=== PATIENT | female | born 1940 | race Caucasian/White ===

== ENCOUNTER 2018-01-16 11:07 | Outpatient (CLI) | payer OTHER ==
[2018-01-16 11:33] LABS: BILIRUBIN,URINE NEGATIVE (NEGATIVE); GLUCOSE, URINE (UA) NEGATIVE (NEGATIVE); KETONES,URINE (UA) NEGATIVE (NEGATIVE); LEUKOCYTE ESTERASE, URINE NEGATIVE (NEGATIVE); NITRITE,URINE NEGATIVE (NEGATIVE); OCCULT BLOOD,URINE MODERATE (NEGATIVE); PROTEIN,URINE NEGATIVE (NEGATIVE); UROBILINOGEN,URINE 0.2 (NORMAL) E.U./dL (NORMAL)
[2018-01-16 11:35] LABS: CLARITY,URINE CLEAR (CLEAR)
[2018-01-16 11:42] LABS: CREATININE 0.9 mg/dL (0.4-1.0)
== END 2018-01-16 11:08 | disposition home or self-care (01) ==
LOC: LAB 11:07
PROVIDERS: ATTEND Physician Assistant
DX: R30.0 Dysuria (principal); R31.0 Gross hematuria; R31.29 Other microscopic hematuria
CPT/HCPCS: 36415; 81003; 82565

== ENCOUNTER 2019-04-24 10:55 | Emergency (ER) | payer MEDICARE, OTHER ==
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
[2019-04-24 12:17] VITALS: BP 156/78
== END 2019-04-24 12:27 | disposition home or self-care (01) ==
LOC: EDUNIT# → ED 10:55
DX: R55 Syncope and collapse (principal); I10 Essential (primary) hypertension
CPT/HCPCS: 93005; 99283

== ENCOUNTER 2020-12-15 06:54 | Outpatient (CLI) | payer MEDICARE ==
--- NOTE | 2020-12-15 17:30 | Ultrasound Report ---
PROCEDURE: Abdomen Complete INDICATIONS: HYPERBILIRUBINEMIA TECHNIQUE: Real-time scanning was performed of the abdominal and retroperitoneal organs, with image documentatio n. COMPARISON: None. FINDINGS: Liver: Liver is slightly increased in echogenicity and no focal liver masses seen.. Gallbladder: Normal appearance of the gallbladder. Biliary ducts: Intrahepatic bile ducts are non-dilated. Extrahepatic bile duct caliber measures 6.8 mm. Normal is 6-7 mm or less in diameter, or 10 mm or less post-cholecystectomy. Pancreas: Visualized portions of the pancreas are sonographically normal. Spleen: Spleen is normal in size and homogeneous in echotexture. Kidneys: Kidneys are normal in size and echotexture. Right kidney measures 9.3 cm long; left kidney measures 10.1 cm long. No hydronephrosis or nephrolithiasis. No solid masses. Left renal cortical cyst involving the midpole measuring 10 mm. Aorta: Visualized aorta is normal in caliber at less than 3 cm. Vascular calcifications indicating atherosclerosis. Iliacs: Proximal common iliac arteries are normal in caliber at less than 2.5 cm. IVC: Intrahepatic inferior vena cava is patent. Miscellaneous: No free abdominal fluid. IMPRESSION: Slight increase in hepatic echogenicity which statistically likely represents mild hepatic steatosis. Correlate clinically. 1 cm left renal cortical cyst. Calcification throughout the aorta. Reviewed by: MEGAN Olson on 12/15/2020 5:29 PM PST Approved by: Chica King MD on 12/15/2020 5:29 PM PST Station ID: [id number]
== END 2020-12-15 06:55 | disposition home or self-care (01) ==
LOC: DI 06:54
PROVIDERS: ATTEND Family Medicine
DX: R93.2 Abnormal findings on diagnostic imaging of liver and biliary tract (principal); N28.1 Cyst of kidney, acquired; I70.0 Atherosclerosis of aorta; E87.6 Hypokalemia; E83.52 Hypercalcemia; I10 Essential (primary) hypertension; F03.90 Unspecified dementia, unspecified severity, without behavioral disturbance, psychotic disturbance, mood disturbance, and anxiety
CPT/HCPCS: 36415; 80053; 80061; 82306; 83721; 83970; 84443; 85025

== ENCOUNTER 2020-12-15 08:24 | Outpatient (CLI) | payer MEDICARE ==
[2020-12-15 08:50] LABS: BASOPHILS % (AUTO) 0.3 %; EOSINOPHILS # (AUTO) 0.1 10^3/uL (0.0-0.7); EOSINOPHILS % (AUTO) 1.5 %; HCT - HEMATOCRIT 41.7 % (37.0-47.0); HGB - HEMOGLOBIN 13.6 g/dL (12.0-16.0); LYMPHOCYTES # (AUTO) 1.5 10^3/uL (1.5-3.5); LYMPHOCYTES % (AUTO) 25.8 %; MEAN CORPUSCULAR HEMOGLOBIN 29.5 pg (27.0-31.0); MEAN CORPUSCULAR HGB CONC 32.6 g/dL (32.0-36.0); MEAN CORPUSCULAR VOLUME 90.5 fL (81.0-99.0); MONOCYTES # (AUTO) 0.5 10^3/uL (0.0-1.0); NEUTROPHILS # (AUTO) 3.8 10^3/uL (1.5-6.6); NEUTROPHILS % (AUTO) 64.2 %; PLT - PLATELET COUNT 285 10^3/uL (130-450); RED BLOOD COUNT 4.61 10^6/uL (4.20-5.40); RED CELL DISTRIBUTION WIDTH 13.1 % (12.0-15.0); WHITE BLOOD COUNT 5.9 x10^3/uL (4.8-10.8)
[2020-12-15 09:14] LABS: ALBUMIN 4.3 g/dL (3.2-5.5); ALBUMIN/GLOBULIN RATIO 1.4 (1.0-2.2); ALKALINE PHOSPHATASE 62 IU/L (42-121); ALT ALANINE AMINOTRANSFERASE 13 IU/L (10-60); AST ASPARTATE AMINOTRANSFERASE 19 IU/L (10-42); BILIRUBIN,TOTAL 1.4 mg/dL (0.2-1.0); BUN - BLOOD UREA NITROGEN 21 mg/dL (6-20); CALCIUM 10.3 mg/dL (8.5-10.3); CARBON DIOXIDE - CO2 26 mmol/L (21-32); CHLORIDE 100 mmol/L (101-111); CHOL/HDL RATIO 3.7 (<4.4); CHOLESTEROL 151 mg/dL; CREATININE 0.9 mg/dL (0.4-1.0); GFR - MDRD 61 (>89); GLUCOSE 119 mg/dL (70-100); HDL CHOLESTEROL 41 mg/dL; LDL CHOLESTEROL,CALCULATED 86 mg/dL; LDL/HDL RATIO 2.1 (<4.4); SODIUM 139 mmol/L (135-145); TOTAL PROTEIN 7.4 g/dL (6.7-8.2); TRIGLYCERIDES 119 mg/dL; VLDL CHOLESTEROL 24 mg/dL
[2020-12-15 09:24] LABS: THYROID STIMULATING HORMONE 3.59 uIU/mL (0.34-5.60)
== END 2020-12-15 08:25 | disposition home or self-care (01) ==
LOC: LAB 08:24
PROVIDERS: ATTEND Family Medicine
DX: E87.6 Hypokalemia (principal); E83.52 Hypercalcemia; I10 Essential (primary) hypertension; F03.90 Unspecified dementia, unspecified severity, without behavioral disturbance, psychotic disturbance, mood disturbance, and anxiety
CPT/HCPCS: 36415; 80053; 80061; 82306; 83721; 83970; 84443; 85025

== ENCOUNTER 2021-04-20 08:08 | Day surgery (SDC) | payer MEDICARE ==
[~2021-04-20 08:08] MED LIST: BRIMONIDINE 0.2% OPHTH DROPS 5 ML ONE; BSS/LIDOCAINE/EPINEPHRINE 1 ML SYRINGE ONE; CYCLOPENTOLATE 1% OPHTH DROPS 2 ML ONE; EPINEPHrine 1 MG/ML AMP ONE; KETOROLAC 0.45% OPHTH DROPS ONE; PHENYLEPHRINE 2.5% OPHTH 2 ML DROPS ONE; PROPARACAINE 0.5% OPHTH DROPS 15 ML ONE; TIMOLOL 0.5% OPHTH DROPS ONE; TRIAMCIN/MOXIFLOX OPHTHALMIC 0.6 ML VIAL IO ONE; VANCOMYCIN OPHTHALMI 8MG/0.8ML 8 MG/0.8 ML SYRINGE IO ONE
[2021-04-20] MEDS ORDERED: LACTATED RINGERS 1,000 ML IV ONE (09:01)
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
[2021-04-20] MEDS ORDERED: MIDAZOLAM 2 MG/2 ML VIAL ONE (09:38)
[2021-04-20] MEDS ORDERED: BRIMONIDINE 0.2% OPHTH DROPS 5 ML OPTH ONE (09:43)
[2021-04-20] MEDS ORDERED: PROPARACAINE 0.5% OPHTH DROPS 15 ML EACHEYE ONE (09:44)
[2021-04-20] MEDS ORDERED: BSS/LIDOCAINE/EPINEPHRINE 1 ML SYRINGE IO ONE (09:44)
[2021-04-20] MEDS ORDERED: TIMOLOL 0.5% OPHTH DROPS OPTH ONE (09:44)
[2021-04-20] MEDS ORDERED: TRIAMCIN/MOXIFLOX OPHTHALMIC 0.6 ML VIAL IO ONE (09:44)
[2021-04-20] MEDS ORDERED: EPINEPHrine 1 MG/ML AMP IR ONE (09:44)
[2021-04-20] MEDS ORDERED: CHONDR SULF/HYALURONATE SYRINGE IO ONE (09:44)
[2021-04-20] MEDS ORDERED: VANCOMYCIN OPHTHALMI 8MG/0.8ML 8 MG/0.8 ML SYRINGE IO ONE (09:45)
[2021-04-20] MEDS ORDERED: ACETYLCHOLINE 20 MG/2 ML KIT IO ONE ×2 (10:00→10:03)
[2021-04-20] MEDS ORDERED: LACTATED RINGERS 900 ML IV ONE (10:09)
[2021-04-20 10:35] VITALS: BP 119/56
--- NOTE | 2021-04-20 11:40 | OPERATIVE REPORT ---
Operative Report - Other Other Information/Narrative: Date of Surgery: 04/20/21 Preop Dx: Visually significant cataract left eye. This was the first cataract surgery. Postop Dx: Same Procedure: Phacoemulsification with posterior chamber intraocular lens implant left eye Surgeon: Dr. Misael Borjas Anesthesia: Monitored anesthesia care Complications: None Operative Indications: This is a 80-year-old F with progressive vision loss in the left eye due to 3-4+ nuclear sclerotic, 1-2+ anterior subcapsular, and central irregular cataract. Best corrected visual acuity was 20/50 with glare to light perception vision in the left eye. Indications for surgery were: - Overall decrease in vision - Difficulty reading - Difficulty seeing words, closed captions or games scores on TV - Difficulty driving at night because of headlights from other vehicles - Difficulty with glare or bright lights in any situation The patient was consented at length concerning the risks and benefits of cataract surgery after which the patient expressed a desire to proceed with surgery. Operative Procedure: The patient was taken into OR#3 and placed under monitored anesthesia care. A surgical time-out was conducted confirming correct patient, correct procedure, and correct surgical site. The patient was given topical anesthesia and then prepped and draped in the usual sterile fashion. The eye was entered at the 6 and 3 oclock positions. Intracameral Shugarcaine was injected into the anterior chamber followed by a dispersive viscoelastic. It was noted that there is a XEN implant tube extending anterior to the iris in the superotemporal quadrant. A continuous-tear curvilinear capsulorhexis was performed. The nucleus was hydrodissected and phacoemulsified. The cortex was evacuated using automated infusion and aspiration. A cohesive viscoelastic was injected into the capsular bag and a 22.5 diopter intraocular lens was inserted into the bag. Infusion and aspiration were used to evacuate the viscoelastic materials from the eye. The wounds were hydrated and the eye inflated to physiologic pressure using balanced salt solution. Approximately 0.25ml of a mixture of triamcinolone and moxifloxacin was injected trans-sclerally into the vitreous in the inferotemporal quadrant using a 30 gauge cannula. An additional 0.55ml of a mixture of triamcinolone, moxifloxacin, and vancomycin was injected subconjunctivally in the inferotemporal quadrant (since the superior conjuctibva was scarred down) for infection and inflammation prophylaxis. The anterior chamber kept shallowing and the IOL kept prolapsing forward of the pupillary margin so a 10-0 nylon suture was placed across the phaco wound and Miochol was injected into the anterior chamber to bring the pupil down to cover the IOL edge. Wound integrity was checked with Weck-Natalie sponges. The patient was taken from the operating room in good condition and given post-op instructions.
--- NOTE | 2021-04-20 11:49 | ANESTHESIA POST OP EVALUATION ---
Anesthesia Post Eval - Post Anesthesia Eval Vitals: Last Vital Signs Temp 36.0 C L 04/20/21 10:35 Pulse 65 04/20/21 10:35 Resp 16 04/20/21 10:35 BP 119/56 L 04/20/21 10:35 Pulse Ox 100 04/20/21 10:35 CV Function Including HR & BP: Stable Pain Control: Satisfactory Nausea & Vomiting: Negative Mental Status: Baseline Respiratory Status: Airway Patent Hydration Status: Satisfactory Anesthesia Complications: None
== END 2021-04-20 08:09 | disposition home or self-care (01) ==
LOC: SDS 08:08
PROVIDERS: ATTEND Ophthalmology
DX: H25.12 Age-related nuclear cataract, left eye (principal); H40.9 Unspecified glaucoma
CPT/HCPCS: 66984; A9270; J3490; J7120

== ENCOUNTER 2021-08-24 07:39 | Outpatient (CLI) | payer MEDICARE ==
[2021-08-24 12:31] LABS: BASOPHILS % (AUTO) 0.4 %; EOSINOPHILS # (AUTO) 0.2 10^3/uL (0.0-0.7); EOSINOPHILS % (AUTO) 2.9 %; HCT - HEMATOCRIT 39.9 % (37.0-47.0); HGB - HEMOGLOBIN 12.9 g/dL (12.0-16.0); LYMPHOCYTES # (AUTO) 1.8 10^3/uL (1.5-3.5); LYMPHOCYTES % (AUTO) 33.9 %; MEAN CORPUSCULAR HEMOGLOBIN 29.5 pg (27.0-31.0); MEAN CORPUSCULAR HGB CONC 32.3 g/dL (32.0-36.0); MEAN CORPUSCULAR VOLUME 91.1 fL (81.0-99.0); MEAN PLATELET VOLUME 9.8 fL (7.9-10.8); MONOCYTES # (AUTO) 0.5 10^3/uL (0.0-1.0); MONOCYTES % (AUTO) 9.2 %; NEUTROPHILS # (AUTO) 2.8 10^3/uL (1.5-6.6); NEUTROPHILS % (AUTO) 53.4 %; PLT - PLATELET COUNT 258 10^3/uL (130-450); RED BLOOD COUNT 4.38 10^6/uL (4.20-5.40); WHITE BLOOD COUNT 5.2 x10^3/uL (4.8-10.8)
[2021-08-24 12:51] LABS: ALBUMIN 4.1 g/dL (3.2-5.5); ALBUMIN/GLOBULIN RATIO 1.4 (1.0-2.2); ALKALINE PHOSPHATASE 65 IU/L (42-121); ALT ALANINE AMINOTRANSFERASE 13 IU/L (10-60); AST ASPARTATE AMINOTRANSFERASE 20 IU/L (10-42); BILIRUBIN,TOTAL 1.6 mg/dL (0.2-1.0); BUN - BLOOD UREA NITROGEN 19 mg/dL (6-20); CALCIUM 9.8 mg/dL (8.5-10.3); CARBON DIOXIDE - CO2 29 mmol/L (21-32); CHLORIDE 103 mmol/L (101-111); CHOL/HDL RATIO 3.4 (<4.4); CHOLESTEROL 134 mg/dL; CREATININE 0.9 mg/dL (0.4-1.0); GFR - MDRD 61 (>89); GLUCOSE 128 mg/dL (70-100); HDL CHOLESTEROL 39 mg/dL; LDL CHOLESTEROL,CALCULATED 79 mg/dL; SODIUM 137 mmol/L (135-145); TOTAL PROTEIN 7.1 g/dL (6.7-8.2); TRIGLYCERIDES 82 mg/dL; VLDL CHOLESTEROL 16 mg/dL
[2021-08-28 20:20] LABS: ESTIMATED AVERAGE GLUCOSE 114 mg/dL (70-100); HEMOGLOBIN A1c% 5.6 % (4.27-6.07)
== END 2021-08-24 23:59 | disposition home or self-care (01) ==
LOC: LAB.WCP 07:39
PROVIDERS: ATTEND Family Medicine
DX: I10 Essential (primary) hypertension (principal); R73.9 Hyperglycemia, unspecified
CPT/HCPCS: 36415; 80053; 80061; 83036; 83721; 85025

== ENCOUNTER 2021-11-30 10:03 | Day surgery (SDC) | payer MEDICARE ==
[~2021-11-30 10:03] MED LIST changes: -BRIMONIDINE 0.2% OPHTH DROPS 5 ML ONE; -BSS/LIDOCAINE/EPINEPHRINE 1 ML SYRINGE ONE; -EPINEPHrine 1 MG/ML AMP ONE; -TIMOLOL 0.5% OPHTH DROPS ONE; -TRIAMCIN/MOXIFLOX OPHTHALMIC 0.6 ML VIAL IO ONE; -VANCOMYCIN OPHTHALMI 8MG/0.8ML 8 MG/0.8 ML SYRINGE IO ONE
[2021-11-30] MEDS ORDERED: LACTATED RINGERS 1,000 ML IV ONE (10:31)
--- NOTE | 2021-11-30 11:20 | ANESTHESIA ---
Pre-Anesthesia VS, & Labs - Diagnosis right eye cataract - Procedure right eye cataract extraction with IOL implant Vital Signs: Temp Pulse Resp BP Pulse Ox 36.9 C 70 18 145/65 H 99 11/30/21 10:36 11/30/21 10:36 11/30/21 10:36 11/30/21 10:36 11/30/21 10:36 Height: 5 ft 7 in Weight (kg): 78 kg Body Mass Index: 26.9 BMI Classification: Overweight - NPO >8 hours - Is Patient ?: No Home Medications and Allergies Home Medications: Ambulatory Orders Memantine HCl [Namenda] 5 mg PO DAILY 11/29/21 Losartan Potassium [Cozaar] 100 mg PO DAILY 04/19/21 Potassium Chloride 20 meq PO DAILY 04/19/21 Vitamin E (Dl,Tocopheryl Acet) [Vitamin E] 450 mg PO DAILY 04/19/21 amLODIPine [Norvasc] 5 mg PO BID 04/19/21 hydroCHLOROthiazide [Hydrodiuril] 25 mg PO DAILY 04/19/21 Memantine HCl [Namenda] 5 mg PO DAILY 11/29/21 Allergies/Adverse Reactions: Allergies Allergy/AdvReac Type Severity Reaction Status Date / Time amoxicillin Allergy Unknown Verified 04/24/19 11:20 Anes History & Medical History - Anesthetic History Anesthesia Complications: reports: No previous complications - Medical History Cardiovascular: reports: Hypertension, Other Pulmonary: reports: None Gastrointestinal: reports: None Urinary: reports: None Neuro: reports: None Musculoskeletal: reports: None Endocrine/Autoimmune: reports: None Blood Disorders: reports: None Skin: reports: None Smoking Status: Never smoker Psychosocial: reports: No issues indicated History of Cancer?: No - Surgical History Eyes Ears Nose Throat (EENT): reports: Cataracts Gynecologic: reports: Hysterectomy Exam General: Alert, Oriented x3, Cooperative, No acute distress Dental: Dentures full Upper, Partials Lower Mouth Openin Fingerbreadth Neck Mobility: Normal Mallampati classification: II Thyromental Distance: 4-6 cm Mental/Cognitive Status: Alert/Oriented X3, Normal for patient Plan Anesthesia Type: MAC Consent for Procedure(s) Verified and Reviewed: Yes Code Status: Attempt Resuscitation ASA classification: 2-Mild systemic disease Is this case an emergency?: No
[2021-11-30] MEDS ORDERED: MIDAZOLAM 2 MG/2 ML VIAL ONE (11:33)
[2021-11-30] MEDS ORDERED: BSS/LIDOCAINE/EPINEPHRINE 1 ML SYRINGE IO ONE (12:07)
[2021-11-30] MEDS ORDERED: BRIMONIDINE 0.2% OPHTH DROPS 5 ML OPTH ONE (12:07)
[2021-11-30] MEDS ORDERED: TIMOLOL 0.5% OPHTH DROPS OPTH ONE (12:07)
[2021-11-30] MEDS ORDERED: EPINEPHrine 1 MG/ML AMP IR ONE (12:07)
[2021-11-30] MEDS ORDERED: TRIAMCIN/MOXIFLOX OPHTHALMIC 0.6 ML VIAL IO ONE ×3 (12:07→13:44)
[2021-11-30] MEDS ORDERED: VANCOMYCIN OPHTHALMI 8MG/0.8ML 8 MG/0.8 ML SYRINGE IO ONE (12:08)
[2021-11-30] MEDS ORDERED: PROPARACAINE 0.5% OPHTH DROPS 15 ML EACHEYE ONE (12:08)
[2021-11-30] MEDS ORDERED: BSS/LIDOCAINE/EPINEPHRINE 1 ML VIAL ONE (12:20)
[2021-11-30] MEDS ORDERED: BRIMONIDINE 0.2% OPHTH DROPS 5 ML ONE (12:20)
[2021-11-30] MEDS ORDERED: TIMOLOL 0.5% OPHTH DROPS ONE (12:20)
[2021-11-30] MEDS ORDERED: EPINEPHrine 1 MG/ML AMP ONE (12:20)
[2021-11-30] MEDS ORDERED: LACTATED RINGERS 900 ML IV ONE (12:27)
[2021-11-30 12:49] VITALS: BP 114/57
--- NOTE | 2021-11-30 13:32 | OPERATIVE REPORT ---
Operative Report - Other Other Information/Narrative: Date of Surgery: 11/30/21 Preop Dx: Visually significant cataract right eye. Cataract surgery was performed in the left eye on . Postop Dx: Same Procedure: Phacoemulsification with posterior chamber intraocular lens implant right eye Surgeon: Dr. Misael Borjas Anesthesia: Monitored anesthesia care Complications: None Operative Indications: This is a 80-year-old F with progressive vision loss in the right eye due to 3-4+ nuclear sclerotic cataract. Best corrected visual acuity was 20/30 with glare to hand motion vision in the right eye. Indications for surgery were: - Overall decrease in vision - Difficulty seeing words, closed captions, or game scores on TV - Difficulty seeing street signs - Difficulty driving at night because of headlights from other vehicles - Difficulty with glare or bright lights in any situation The patient was consented at length concerning the risks and benefits of cataract surgery after which the patient expressed a desire to proceed with surgery. Operative Procedure: The patient was taken into OR#3 and placed under monitored anesthesia care. A surgical time-out was conducted confirming correct patient, correct procedure, and correct surgical site. The patient was given topical anesthesia and then prepped and draped in the usual sterile fashion. The eye was entered at the 6 and 3 oclock positions. Intracameral Shugarcaine was injected into the anterior chamber followed by a dispersive viscoelastic. A continuous-tear curvilinear capsulorhexis was performed. The nucleus was hydrodissected and phacoemulsified. The cortex was evacuated using automated infusion and aspiration. A cohesive viscoelastic was injected into the capsular bag and a 21.0 diopter intraocular lens was inserted into the bag. During phaco pieces of nucleus kept bouncing of the phaco tip (this had happened in other cases today as well) and this time a piece bounced under the iris and atop the anterior capsule. Getting it out proved difficult and some iris pigment was lost in the process. Infusion and aspiration were used to evacuate the viscoelastic materials from the eye. The wounds were hydrated and the eye inflated to physiologic pressure using balanced salt solution. Approximately 0.25ml of a mixture of triamcinolone and moxifloxacin was injected trans- sclerally into the vitreous in the inferotemporal quadrant using a 30 gauge cannula. An additional 0.55ml of a mixture of triamcinolone, moxifloxacin, and vancomycin was injected subconjunctivally in the superior quadrant for infection and inflammation prophylaxis. Wound integrity was checked with Weck-Natalie sponges. The patient was taken from the operating room in good condition and given post- op instructions.
--- NOTE | 2021-11-30 16:25 | ANESTHESIA POST OP EVALUATION ---
Anesthesia Post Eval - Post Anesthesia Eval Vitals: Last Vital Signs Temp 36.6 C 11/30/21 12:48 Pulse 67 11/30/21 12:48 Resp 18 11/30/21 12:48 BP 114/57 L 11/30/21 12:48 Pulse Ox 96 11/30/21 12:48 CV Function Including HR & BP: Stable Pain Control: Satisfactory Nausea & Vomiting: Negative Mental Status: Baseline Respiratory Status: Airway Patent Hydration Status: Satisfactory Anesthesia Complications: None
== END 2021-11-30 10:04 | disposition home or self-care (01) ==
LOC: SDS 10:03
PROVIDERS: ATTEND Ophthalmology
DX: H25.11 Age-related nuclear cataract, right eye (principal); Z98.42 Cataract extraction status, left eye
CPT/HCPCS: 66984; A9270; J3490; J7120

== ENCOUNTER 2022-04-27 11:54 | Emergency (ER) | payer MEDICARE ==
[2022-04-27 12:11] VITALS: BP 147/66
--- NOTE | 2022-04-27 12:38 | ED Physician Documentation ---
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 HEENT: Cataracts - Present Medications Home Medications: Ambulatory Orders Medication Instructions Recorded Confirmed Losartan Potassium [Cozaar] 100 mg PO DAILY 04/19/21 11/30/21 Potassium Chloride 20 meq PO DAILY 04/19/21 11/29/21 Vitamin E (Dl,Tocopheryl Acet) 450 mg PO DAILY 04/19/21 11/29/21 [Vitamin E] amLODIPine [Norvasc] 5 mg PO BID 04/19/21 11/30/21 hydroCHLOROthiazide [Hydrodiuril] 25 mg PO DAILY 04/19/21 11/30/21 Memantine HCl [Namenda] 5 mg PO DAILY 11/29/21 11/29/21 - Allergies Allergies/Adverse Reactions: Allergies Allergy/AdvReac Type Severity Reaction Status Date / Time amoxicillin Allergy Unknown Verified 04/27/22 12:11 - Social History Does the pt smoke?: No Smoking Status: Never smoker Does the pt drink ETOH?: No Does the pt have substance abuse?: No - Immunizations Immunizations are current?: Yes - POLST Patient has POLST: No Results - Vitals Vitals: Vital Signs - 24 hr 04/27/22 12:08 Temperature 36.4 C L Heart Rate 80 Respiratory 16 Rate Blood Pressure 147/66 H O2 Saturation 100 Oxygen O2 Source Room air
[2022-04-27 12:54] LABS: BASOPHILS % (AUTO) 0.3 %; EOSINOPHILS # (AUTO) 0.1 10^3/uL (0.0-0.7); HCT - HEMATOCRIT 41.4 % (37.0-47.0); HGB - HEMOGLOBIN 14.2 g/dL (12.0-16.0); LYMPHOCYTES # (AUTO) 1.9 10^3/uL (1.5-3.5); LYMPHOCYTES % (AUTO) 23.5 %; MEAN CORPUSCULAR HGB CONC 34.3 g/dL (32.0-36.0); MEAN CORPUSCULAR VOLUME 87.3 fL (81.0-99.0); MEAN PLATELET VOLUME 9.1 fL (7.9-10.8); MONOCYTES # (AUTO) 0.6 10^3/uL (0.0-1.0); MONOCYTES % (AUTO) 7.9 %; NEUTROPHILS # (AUTO) 5.3 10^3/uL (1.5-6.6); NEUTROPHILS % (AUTO) 67.2 %; PLT - PLATELET COUNT 269 10^3/uL (130-450); RED BLOOD COUNT 4.74 10^6/uL (4.20-5.40); RED CELL DISTRIBUTION WIDTH 12.5 % (12.0-15.0); WHITE BLOOD COUNT 7.9 x10^3/uL (4.8-10.8)
--- NOTE | 2022-04-27 12:56 | XRAY Report ---
PROCEDURE: Chest 1 View X-Ray INDICATIONS: Chest pain TECHNIQUE: One view of the chest was acquired. COMPARISON: None FINDINGS: Surgical changes and devices: None. Lungs and pleura: No pleural effusions or pneumothorax. Lungs are clear. Mediastinum: Mediastinal contours appear normal. Heart size is normal. Bones and chest wall: No suspicious bony lesions. Overlying soft tissues appear unremarkable. IMPRESSION: No acute cardiopulmonary pathology. Reviewed by: Ronny Pérez MD on 04/27/2022 12:55 PM PDT Approved by: Ronny Pérez MD on 04/27/2022 12:55 PM PDT Station ID: [id number]
[2022-04-27] MEDS ORDERED: SODIUM CHLORIDE 0.9% 500 ML IV STA (13:06)
[2022-04-27 13:13] LABS: ALBUMIN 4.8 g/dL (3.2-5.5); ALBUMIN/GLOBULIN RATIO 1.5 (1.0-2.2); BILIRUBIN,TOTAL 1.5 mg/dL (0.2-1.0); CALCIUM 10.6 mg/dL (8.5-10.3); CREATININE 1.1 mg/dL (0.4-1.0); POTASSIUM 3.1 mmol/L (3.5-5.0); TOTAL PROTEIN 7.9 g/dL (6.7-8.2)
--- NOTE | 2022-04-27 13:29 | ED Physician Documentation ---
PD HPI SYNCOPE - Stated complaint Stated Complaint: NUMBNESS ON BOTH FEET - Chief complaint Chief Complaint: Neuro - History obtained from History obtained from: Patient - History of Present Illness Witnessed: Witnessed Timing - onset: How many hours ago (1), Today Duration: Minutes Preceding symptoms: Light headed, Generalized weakness. 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 No: Recent med change, Decreased PO intake Injury occurred: No: Fell, Head injury, Neck injury Similar symptoms before: No diagnosis (had similar symptoms 3 years ago in similar circumstance. Normal findings in ER and no recurrent symptoms at that time.) Recently seen: Not recently seen Review of Systems Constitutional: denies: Fever, Chills Nose: denies: Rhinorrhea / runny nose, Congestion Throat: denies: Sore throat Cardiac: reports: Pedal edema (mild intermittently). denies: Chest pain / pressure, Palpitations, Calf pain Respiratory: denies: Cough GI: denies: Abdominal Pain, Nausea, Vomiting, Diarrhea, Bloody / black stool Skin: denies: Rash, Lesions Musculoskeletal: denies: Neck pain, Back pain Neurologic: reports: Generalized weakness, Near syncope. 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 HEENT: Cataracts - Present Medications Home Medications: Ambulatory Orders Medication Instructions Recorded Confirmed Losartan Potassium [Cozaar] 100 mg PO DAILY 04/19/21 04/27/22 Potassium Chloride 20 meq PO DAILY 04/19/21 04/27/22 Vitamin E (Dl,Tocopheryl Acet) 450 mg PO DAILY 04/19/21 04/27/22 [Vitamin E] amLODIPine [Norvasc] 5 mg PO BID 04/19/21 04/27/22 hydroCHLOROthiazide [Hydrodiuril] 25 mg PO DAILY 04/19/21 04/27/22 Memantine HCl [Namenda] 5 mg PO DAILY 11/29/21 04/27/22 - Allergies Allergies/Adverse Reactions: Allergies Allergy/AdvReac Type Severity Reaction Status Date / Time amoxicillin Allergy Unknown Verified 04/27/22 12:11 - Social History Does the pt smoke?: No Smoking Status: Never smoker Does the pt drink ETOH?: No Does the pt have substance abuse?: No - Immunizations Immunizations are current?: Yes - POLST Patient has POLST: No PD ED PE NORMAL - Vitals Vital signs reviewed: Yes - General General: Alert and oriented X 3, No acute distress, Well developed/nourished Results - Vitals Vitals: Vital Signs - 24 hr 04/27/22 12:08 Temperature 36.4 C L Heart Rate 80 Respiratory 16 Rate Blood Pressure 147/66 H O2 Saturation 100 Oxygen O2 Source Room air - EKG (time done) 12:15 Rate: Rate (enter#) (76) Rhythm: NSR Intervals: LBBB Ischemia: Non specific changes. No: ST elevation c/w ischemia Compare to prior EKG: Unchanged from prior EKG (04/24/2019) - Labs Labs: Laboratory Tests 04/27/22 04/27/22 04/27/22 12:47 12:47 12:47 WBC 7.9 RBC 4.74 Hgb 14.2 Hct 41.4 MCV 87.3 MCH 30.0 MCHC 34.3 RDW 12.5 Plt Count 269 MPV 9.1 Neut # (Auto) 5.3 Lymph # (Auto) 1.9 [place] # (Auto) 0.6 Eos # (Auto) 0.1 Baso # (Auto) 0.0 Absolute Nucleated RBC 0.00 Nucleated RBC % 0.0 Sodium 139 Potassium 3.1 L Chloride 103 Carbon Dioxide 26 Anion Gap 10.0 BUN 28 H Creatinine 1.1 H Estimated GFR (MDRD) 48 L Glucose 168 H Calcium 10.6 H Magnesium Total Bilirubin 1.5 H AST 22 ALT 15 Alkaline Phosphatase 65 Troponin I High Sens 6.3 Total Protein 7.9 Albumin 4.8 Globulin 3.1 Albumin/Globulin Ratio 1.5 Lipase 38 04/27/22 12:47 WBC RBC Hgb Hct MCV MCH MCHC RDW Plt Count MPV Neut # (Auto) Lymph # (Auto) [place] # (Auto) Eos # (Auto) Baso # (Auto) Absolute Nucleated RBC Nucleated RBC % Sodium Potassium Chloride Carbon Dioxide Anion Gap BUN Creatinine Estimated GFR (MDRD) Glucose Calcium Magnesium 2.4 Total Bilirubin AST ALT Alkaline Phosphatase Troponin I High Sens Total Protein Albumin Globulin Albumin/Globulin Ratio Lipase - Rads (name of study) chest xray Radiology: Prelim report reviewed (no acute process), See rad report PD MEDICAL DECISION MAKING - ED course Complexity details: reviewed results, considered differential, d/w patient Departure - Departure Disposition: Home, Self Care Clinical Impression: Light-headed feeling, Generalized weakness, Hypokalemia Condition: Stable Record reviewed to determine appropriate education?: Yes Instructions: ED Diet High Potassium Comments: It is unclear the cause of your symptoms. You might have been under hydrated a nd felt some symptoms from that. Your sugar was a little bit elevated consistent with the food UAD in. Your basic blood tests are normal with exception of a mildly low potassium level. Continue with your potassium supplement and also potassium rich foods. Stay well-hydrated. No signs of abnormal blood pressure nor heart attack nor heart failure to account for your symptoms. Follow-up with your primary care if recurrent episodes or return to the ER if needed. Discharge Date/Time: 04/27/22 14:30
[2022-04-27] MEDS ORDERED: POTASSIUM CHLORIDE 20 MEQ TABLET PO STA (13:31)
== END 2022-04-27 14:30 | disposition home or self-care (01) ==
LOC: ED 11:54
DX: R42 Dizziness and giddiness (principal); R53.1 Weakness; E87.6 Hypokalemia; I10 Essential (primary) hypertension
CPT/HCPCS: 36415; 71045; 80053; 83690; 83735; 84484; 85025; 93005; 96360; 99281; 99284; A9270

== ENCOUNTER 2022-11-09 09:02 | Emergency (ER) | payer MEDICARE ==
[2022-11-09 09:25] LABS: BASOPHILS % (AUTO) 0.2 %; EOSINOPHILS # (AUTO) 0.1 10^3/uL (0.0-0.7); EOSINOPHILS % (AUTO) 1.2 %; HCT - HEMATOCRIT 43.5 % (37.0-47.0); HGB - HEMOGLOBIN 14.3 g/dL (12.0-16.0); LYMPHOCYTES # (AUTO) 2.4 10^3/uL (1.5-3.5); LYMPHOCYTES % (AUTO) 27.4 %; MEAN CORPUSCULAR HGB CONC 32.9 g/dL (32.0-36.0); MEAN CORPUSCULAR VOLUME 88.2 fL (81.0-99.0); MEAN PLATELET VOLUME 9.3 fL (7.9-10.8); MONOCYTES # (AUTO) 0.7 10^3/uL (0.0-1.0); MONOCYTES % (AUTO) 8.1 %; NEUTROPHILS # (AUTO) 5.6 10^3/uL (1.5-6.6); NEUTROPHILS % (AUTO) 62.8 %; PLT - PLATELET COUNT 285 10^3/uL (130-450); RED BLOOD COUNT 4.93 10^6/uL (4.20-5.40); RED CELL DISTRIBUTION WIDTH 12.9 % (12.0-15.0); WHITE BLOOD COUNT 8.9 x10^3/uL (4.8-10.8)
[2022-11-09 09:37] LABS: ALBUMIN 4.4 g/dL (3.2-5.5); ALBUMIN/GLOBULIN RATIO 1.3 (1.0-2.2); CALCIUM 10.5 mg/dL (8.5-10.3); POTASSIUM 3.6 mmol/L (3.5-5.0); TOTAL PROTEIN 7.9 g/dL (6.7-8.2)
--- NOTE | 2022-11-09 09:40 | XRAY Report ---
PROCEDURE: Chest 1 View X-Ray INDICATIONS: Chest pain TECHNIQUE: One view of the chest was acquired. COMPARISON: 04/27/2022 FINDINGS: Surgical changes and devices: None. Lungs and pleura: No pleural effusions or pneumothorax. Lungs are clear. Mediastinum: Mediastinal contours appear normal. Heart size is normal. Bones and chest wall: No suspicious bony lesions. Overlying soft tissues appear unremarkable. IMPRESSION: No acute radiographic abnormality. Reviewed by: Slade Miramontes MD on 11/09/2022 9:38 AM [facility] Approved by: Slade Miramontes MD on 11/09/2022 9:38 AM [facility] Station ID: [id number]
--- NOTE | 2022-11-09 09:45 | ED Physician Documentation ---
PD HPI CHEST PAIN - Stated complaint Stated Complaint: CHEST PX - Chief complaint Chief Complaint: Cardiac - History obtained from History obtained from: Patient - History of Present Illness Timing - onset: How many hours ago (few), Today Timing - onset during: Rest Timing - duration: Hours (few) Timing - details: Gradual onset, Still present, Waxing and waning Quality: Tightness, Aching Location: Left chest Radiation: No: Jaw, Neck, Back Improved by: No: Rest Worsened by: Movement. No: Exertion, Inspiration, Palpation Associated symptoms: No: Shortness of air, Nausea, Feeling faint / dizzy, Cough Similar symptoms before: Has not had sx before Recently seen: Not recently seen Review of Systems Constitutional: denies: Fever, Chills Nose: denies: Rhinorrhea / runny nose, Congestion Throat: denies: Sore throat Respiratory: denies: Cough GI: denies: Abdominal Pain, Nausea, Vomiting Musculoskeletal: denies: Extremity swelling PD PAST MEDICAL HISTORY - Past Medical History Cardiovascular: Hypertension, Other Respiratory: None Neuro: None Endocrine/Autoimmune: None GI: None : None HEENT: Glaucoma Psych: None Musculoskeletal: None Derm: None - 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 HEENT: Cataracts - Present Medications Home Medications: Ambulatory Orders Medication Instructions Recorded Confirmed Losartan Potassium [Cozaar] 100 mg PO DAILY 04/19/21 11/09/22 Potassium Chloride 20 meq PO DAILY 04/19/21 11/09/22 Vitamin E (Dl,Tocopheryl Acet) 450 mg PO DAILY 04/19/21 11/09/22 [Vitamin E] amLODIPine [Norvasc] 5 mg PO BID 04/19/21 11/09/22 hydroCHLOROthiazide [Hydrodiuril] 12.5 mg PO DAILY 04/19/21 11/09/22 Memantine HCl [Namenda] 5 mg PO DAILY 11/29/21 11/09/22 Estradiol [Estrace] 1 applic VG DAILY 11/09/22 11/09/22 - Allergies Allergies/Adverse Reactions: Allergies Allergy/AdvReac Type Severity Reaction Status Date / Time amoxicillin Allergy Unknown Verified 11/09/22 09:18 - Social History Does the pt smoke?: No Smoking Status: Never smoker Does the pt drink ETOH?: No Does the pt have substance abuse?: No - Immunizations Immunizations are current?: Yes - POLST Patient has POLST: No PD ED PE NORMAL - Vitals Vital signs reviewed: Yes - General General: Alert and oriented X 3, No acute distress, Well developed/nourished - HEENT HEENT: Pharynx benign - Neck Neck: Supple, no meningeal sign, No adenopathy - Cardiac Cardiac: RRR, No murmur - Respiratory Respiratory: Clear bilaterally, Other (no chestwall tenderness. ) - Abdomen Abdomen: Soft, Non tender - Derm Derm: Normal color, Warm and dry - Extremities Extremities: Normal ROM s pain, No edema, No calf tenderness / cord - Neuro Neuro: Alert and oriented X 3, No motor deficit, Normal speech Results - Vitals Vitals: Oxygen O2 Source Room air - EKG (time done) 09:35 Rate: Rate (enter#) (77) Rhythm: NSR Intervals: Normal NH, LBBB QRS: Normal Ischemia: Normal ST segments. No: ST elevation c/w ischemia, ST depression Compare to prior EKG: Unchanged from prior EKG (04/27/22) - Labs Labs: Laboratory Tests 11/09/22 11/09/22 11/09/22 09:15 09:15 09:15 WBC 8.9 RBC 4.93 Hgb 14.3 Hct 43.5 MCV 88.2 MCH 29.0 MCHC 32.9 RDW 12.9 Plt Count 285 MPV 9.3 Neut # (Auto) 5.6 Lymph # (Auto) 2.4 Sebastian # (Auto) 0.7 Eos # (Auto) 0.1 Baso # (Auto) 0.0 Absolute Nucleated RBC 0.00 Nucleated RBC % 0.0 Sodium 135 Potassium 3.6 Chloride 98 L Carbon Dioxide 23 Anion Gap 14.0 H BUN 25 H Creatinine 1.0 Estimated GFR (MDRD) 53 L Glucose 128 H Calcium 10.5 H Total Bilirubin 2.0 H AST 21 ALT 15 Alkaline Phosphatase 66 Troponin I High Sens 4.7 Total Protein 7.9 Albumin 4.4 Globulin 3.5 Albumin/Globulin Ratio 1.3 Lipase 39 - Rads (name of study) chest xray Radiology: Prelim report reviewed, EMP read indepedently (no acute findings. ), See rad report PD Medical Decision Making - ED course Complexity details: reviewed results (negative troponin and chest xray and no change in ECG from prior. Pain does not sound anginal. ), re-evaluated patient (no change with antacids, so not likely to be GERD. ), considered differential (left chest pain without other symptoms. Will get ECG/CXR/labs, particularly troponin and BNP to evaluate. No pleuritic component, tachycardia nor hypoxia, neg Wells criteria for PE. ), d/w patient Departure - Departure Disposition: 01 Home, Self Care Clinical Impression: Left-sided chest pain Condition: Stable Record reviewed to determine appropriate education?: Yes Instructions: ED Chest Pain Atypical Unkn Cause Follow-Up: Ekta Mobley ARNP [Primary Care Provider] - Comments: It is unclear the cause of your pain. Your EKG, chest x-ray, blood tests are normal so no signs of pneumonia, collapsed lung, fluid around the lung, heart failure, heart attack, electrolyte abnormality on blood test. You do not really get improvement with antacids so less likely reflux. I presume some musculoskeletal pain. I would suggest some ibuprofen or naproxen 1 to 2 tablets twice daily for the next several days. Add Tylenol every 4-6 hours if needed. Recheck if not improved well over the next few days and return if worsening or new symptoms develop along with it. Discharge Date/Time: 11/09/22 11:31
[2022-11-09] MEDS ORDERED: MAG HYDROX/AL HYDROX/SIMETH 30 ML UDC PO STA (10:05)
[2022-11-09] MEDS ORDERED: KETOROLAC 15 MG/ML VIAL IVP STA (10:06)
[2022-11-09] MEDS ORDERED: ACETAMINOPHEN 325 MG TABLET PO STA (10:06)
[2022-11-09 11:08] VITALS: BP 122/62
== END 2022-11-09 11:31 | disposition home or self-care (01) ==
LOC: ED 09:02
DX: R07.9 Chest pain, unspecified (principal)
CPT/HCPCS: 36415; 71045; 80053; 83690; 84484; 85025; 93005; 96374; 99284; A9270

== ENCOUNTER 2023-04-18 20:41 | Emergency (ER) | payer MEDICARE ==
[2023-04-18 20:47] VITALS: BP 130/80
[2023-04-18] MEDS ORDERED: TETANUS/DIPHTHERIA/PERTUSSIS 0.5 ML SYRINGE IM ONE (21:09)
--- NOTE | 2023-04-18 21:12 | ED Physician Documentation ---
PD HPI SKIN - Stated complaint Stated Complaint: L FINGER LAC - Chief complaint Chief Complaint: Laceration - History obtained from History obtained from: Patient - Additional information Additional information: 82yF p/w laceration of L 2nd tip of finger from knife while preparing food. 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 HEENT: Cataracts - Present Medications Home Medications: Ambulatory Orders Medication Instructions Recorded Confirmed Losartan Potassium [Cozaar] 100 mg PO DAILY 04/19/21 11/09/22 Potassium Chloride 20 meq PO DAILY 04/19/21 11/09/22 Vitamin E (Dl,Tocopheryl Acet) 450 mg PO DAILY 04/19/21 11/09/22 [Vitamin E] amLODIPine [Norvasc] 5 mg PO BID 04/19/21 11/09/22 hydroCHLOROthiazide [Hydrodiuril] 12.5 mg PO DAILY 04/19/21 11/09/22 Memantine HCl [Namenda] 5 mg PO DAILY 11/29/21 11/09/22 Estradiol [Estrace] 1 applic VG DAILY 11/09/22 11/09/22 - Allergies Allergies/Adverse Reactions: Allergies Allergy/AdvReac Type Severity Reaction Status Date / Time amoxicillin Allergy Unknown Verified 04/18/23 20:44 - Social History Does the pt smoke?: No Smoking Status: Never smoker Does the pt drink ETOH?: No Does the pt have substance abuse?: No - Immunizations Immunizations are current?: Yes - POLST Patient has POLST: No PD ED PE NORMAL - Vitals Vital signs reviewed: Yes - General General: Alert and oriented X 3, No acute distress, Well developed/nourished - HEENT HEENT: Atraumatic, PERRL, EOMI - Derm Derm: Normal color, Warm and dry, Other (superficial 0.5cm laceration of palmar aspect of L second distal digit) Results - Vitals Vitals: Vital Signs - 24 hr 04/18/23 20:44 Temperature 36.5 C Heart Rate 72 Respiratory 16 Rate Blood Pressure 130/80 O2 Saturation 100 Oxygen O2 Source Room air Procedures - Laceration (location) Finger left Palmar Length in cm: 0.5 Wound type: Linear Neurovascular status: Sensory intact, Motor intact, Vascular intact Anesthesia: Lidocaine 1% Wound preparation: Other (irrigated copiously with water) Skin layer closure: Dermabond Other: Patient tolerated well, No complications, Dressing applied, Tetanus booster given PD Medical Decision Making - ED course ED course: 82yF p/w laceration of finger, repaired with dermabond after numbing and cleaning. tdap updated.return precautions given. Departure - Departure Disposition: 01 Home, Self Care Clinical Impression: Laceration of finger Condition: Good Instructions: ED Laceration Ext Skin Glue Comments: You were seen in the ED for a cut on the finger. I put skin glue on it that will fall off on its own in a couple days. Return to the ED if you have other concerns. You did get a tetanus shot that is good for 10 years.
== END 2023-04-18 21:21 | disposition home or self-care (01) ==
LOC: ED 20:41
DX: S61.211A Laceration without foreign body of left index finger without damage to nail, initial encounter (principal); W26.0XXA Contact with knife, initial encounter; Y93.G1 Activity, food preparation and clean up
CPT/HCPCS: 12001; 90471; 99283

== ENCOUNTER 2023-09-18 08:14 | Outpatient (CLI) | payer MEDICARE ==
--- NOTE | 2023-09-18 08:58 | DEXA Report ---
PROCEDURE: Dexa Spine and/or Hip INDICATIONS: POST MENOPAUSAL TECHNIQUE: Dual energy x-ray absorptiometry (DXA) was performed on a [employer] System. Regions measur ed are the AP Spine, femoral neck, and if needed forearm. COMPARISON: None FINDINGS: Lumbar Spine: Bone Mineral Density 1.041 g/cm/cm,T score -1.2. Left Femoral Neck: Bone Mineral Density 0.839 g/cm/cm, T score -1.4. Left Hip: Bone Mineral Density 0.895 g/cm/cm,T score -0.9. (T score greater or equal to -1.0: NORMAL) (T score from -1.1 to -2.4: OSTEOPENIA) (T score less than or equal to -2.5 to: OSTEOPOROSIS) Impression: By WHO criteria, this patient has low bone density (osteopenia). Patients with diagnosis of osteoporosis or osteopenia should have regular bone mineral density assess ment. For those eligible for Medicare, routine testing is allowed once every 2 years. Testing frequ ency can be increased for patients who have rapidly progressing disease or for those who are receivin g medical therapy to restore bone mass. Reviewed by: Uriel Bliss MD on 09/18/2023 8:57 AM PST Approved by: Uriel Bliss MD on 09/18/2023 8:57 AM PST Station ID: [id number]
== END 2023-09-18 08:15 | disposition home or self-care (01) ==
LOC: DI 08:14
PROVIDERS: ATTEND Nurse Practitioner
DX: Z78.0 Asymptomatic menopausal state (principal); M85.89 Other specified disorders of bone density and structure, multiple sites